=== PATIENT | female | born 1990 | race Caucasian/White ===

== ENCOUNTER 2016-10-28 16:18 | Emergency (ER) | payer SELFPAY ==
[2016-10-28 17:14] VITALS: BP 127/95
== END 2016-10-28 22:00 | disposition left against medical advice (07) ==
LOC: ED 16:18
DX: R09.81 Nasal congestion (principal); R06.00 Dyspnea, unspecified; R30.9 Painful micturition, unspecified; Z53.21 Procedure and treatment not carried out due to patient leaving prior to being seen by health care provider